=== PATIENT | female | born 1955 | race Hispanic/Latino ===

== ENCOUNTER → 2021-06-06 | Outpatient (CLI) | payer OTHER | END | disposition home or self-care (01) | LOC: RAH 09:25 | PROVIDERS: ATTEND Nurse Practitioner Family | DX: R92.8 Other abnormal and inconclusive findings on diagnostic imaging of breast (principal) | CPT/HCPCS: 77066 ==

== ENCOUNTER → 2021-07-05 | Outpatient (CLI) | payer OTHER | END | disposition home or self-care (01) | LOC: SHCH 08:42 | PROVIDERS: ATTEND Internal Medicine Cardiovascular Disease | DX: I08.0 Rheumatic disorders of both mitral and aortic valves (principal); I11.9 Hypertensive heart disease without heart failure; I77.810 Thoracic aortic ectasia; I31.3 Pericardial effusion (noninflammatory); E11.9 Type 2 diabetes mellitus without complications; E78.5 Hyperlipidemia, unspecified; E03.9 Hypothyroidism, unspecified | CPT/HCPCS: 93306 ==